=== PATIENT | male | born 1935 | race Caucasian/White ===

== ENCOUNTER 2018-11-29 00:48 | Day surgery (SDC) | payer MEDICARE ==
[2018-11-29] VITALS (8 sets, daily range): BP systolic 77–144; BP diastolic 49–96
[~2018-11-29] VITALS: Ht 177.8 cm; Wt 84.8 kg
[~2018-11-29 00:48] MED LIST: ASPI81TA94 PO; ATOR40TA24 PO; HYDR-2966 PO; LISI-368 PO
[2018-11-29] MEDS ORDERED: LIDOCAINE/SOD BICARB 8.4% SYR ID ONE (08:30)
[2018-11-29] MEDS ORDERED: NORMOSOL R SOLN(*) 1000 ML BAG 1,000 ML IV PRN (08:30)
[2018-11-29] MEDS ORDERED: LIDOCAINE MPF 1% 5 ML VIAL ONE (08:44)
[2018-11-29] MEDS ORDERED: PROPOFOL EMUL(*) 10MG/ML 20 ML 40 ML ONE (08:44)
--- NOTE | 2018-11-29 11:54 | NUR ---
0859 PT ARRIVED IN SD VIA CART, LEFT LAT, VSS, SBAR FROM Denisse DEE AND DR. GALE, HR CONSISTENTLY IN 100S IN PROCEDURE ROOM 0905 DOWNT O 4L MASK 0925 PT RESTING UNTIL THIS POINT, PLACED EKG LEADS ON PT TO MONITOR IRREGULAR HEART BEAT, PT TOOK O2 MASK OFF, SATTING WELL HOWEVER 0945 VSS 0953 CALLED DAUGHTER SANDIP AND BEGAN ORTHOSTATIC VITALS, STABLE, REASSESSED, D/C'D IV, AND ALLOWED PT TO DRESS. 1010 D/C INSTRUCTIONS COVERED WITH PT BY Ernestina SIERRA, PT EAGER TO LEAVE 1020 DC INSTRUCTIONS COVERED WITH DAUGHTER, WALKED PT AND DAUGHTER OUT TO VEHICLE ON SECOND TIER OF EAST SIDE PARKING
== END 2018-11-29 10:20 | disposition short-term general hospital (02) ==
LOC: OR 00:48
PROVIDERS: ATTEND Family Medicine
DX: Z12.11 Encounter for screening for malignant neoplasm of colon (principal); K63.5 Polyp of colon; Z86.010 Personal history of colon polyps
CPT/HCPCS: 00811; 45385; 88305; J2001; J2704